=== PATIENT | female | born 1985 | race Caucasian/White ===

== ENCOUNTER 2017-09-17 01:27 | Emergency (ER) | payer MEDICAID, SELFPAY ==
[2017-09-17 01:32] VITALS: BP 138/82; PULSE 82; RESP 14; TEMP 36.6; O2SAT 97; BMI 23.6
[2017-09-17 01:58] LABS: Microscopic, Urine URINE MICROSCOPIC (MICROSCOPIC)
[2017-09-17 02:00] LABS: Appearance,Urine CLEAR (Clear); Bilirubin,Urine Negative (Negative); Blood, Urine 3+ (Negative); Color,Urine YELLOW (Yellow); Glucose,Urine (UA) Negative (Negative); Ketones,Urine Negative (Negative); Leukocyte Esterase,Urine Negative (Negative); Nitrate,Urine Negative (Negative); Protein,Urine Negative (Negative); Urobilinogen,Urine 0.2 EU/dl (0.2)
--- NOTE | 2017-09-17 02:01 | HMH.EDUROGF ---
ED Disposition Clinical Impression: Exposure to sexually transmitted disease (STD), Positive urine test Disposition: Home, Self-Care Condition on Discharge: Good Instructions: DI for Urethritis Additional Instructions: call your human factors advisor lead this am Referrals: Agustin Galaviz [Primary Care Provider] - - Critical Care Critical Care Time: No Attestation: On 09/17/17, the high probability of a clinically significant, sudden or life threatening deterioration of the following system(s) required my full and direct attention, intervention and personal management. The time I documented below is in addition to time spent performing reported procedures but includes the following listed in this critical care notation. Medical Decision Making - Medical Records Medical records reviewed: Yes: I reviewed the patient's medical records. Vital Signs: 09/17/17 01:32 Temperature 97.9 F Temperature Source Oral Pulse Rate [Right Radial] 82 Respiratory Rate 14 Blood Pressure [Right Arm] 138/82 Blood Pressure Mean [Right Arm] 100 Blood Pressure Source [Right Arm] Automatic Cuff Blood Pressure Position [Right Arm] Sitting 02 Sat by Pulse Oximetry 97 Oxygen Delivery Method Room Air - Lab Data Lab results reviewed: Yes: I reviewed the patient's lab results. Orders (Tests/Meds): ORDERS Category Date Time Status Urinalysis and Microscopic Stat Lab 09/17/17 01:50 Received Urine , HCG Qual Stat Lab 09/17/17 01:50 Received - Morris Inquiry Pt receiving controlled substance: No Female Urogenital HPI - General Chief complaint: Urogenital-Female Stated complaint: Difficulty urinating Time Seen by Provider: 09/17/17 02:01 Mode of Arrival: Ambulatory Source of Information: Patient, Medical Record Limitations: No Limitations Description of Symptoms (Recalled from ER Triage Doc. by RN): sexual partner reported chlamydia, has had some dysuria - History of Present Illness HPI Narrative: positive exposure to std - as noted above - MD Complaint: dysuria Onset (ago): day(s) Severity: moderate Urinary Symptoms: dysuria Sexual activity: new sexual partner(s) : no - Related Data Home Medications Medication Instructions Recorded Confirmed Pumpkin Seed Extract/Soy Germ [Azo 300 mg PO NEEDED PRN 09/17/17 09/17/17 Bladder Control Capsule] Allergies Allergy/AdvReac Type Severity Reaction Status Date / Time Penicillins Allergy Verified 09/17/17 01:43 [facility] History I have reviewed the patient's past medical history: Yes Medical History: Denies:: Cancer, Diabetes Mellitus Type 1, Diabetes Mellitus Type 2, MRSA Amputation: No Fractures: No - Social History Smoking Status: Current every day smoker Alcohol Intake: never - Psychiatric History Expresses thoughts of harming self/others: None Suicide Plan Description: No Plan ROS Obtained: Yes All systems reviewed & no additional complaints - Constitutional Constitutional: Denies fever(s) - Eyes Eyes: Denies change in vision - ENT Ears, Nose, Mouth, and Throat: Denies sore throat - Cardiovascular Cardiovascular: Denies chest pain - Respiratory Respiratory: No chest congestion - Gastrointestinal Gastrointestingal: Denies: abdominal pain - Genitourinary Female Genitourinary: Reports as per HPI, Reports other (recent d/c 09/11) - Musculoskeletal Musculoskeletal: Denies joint pain - Integumentary/Breasts Skin/Breast: Denies rash - Neurologic Neurologic: Denies seizure-like activity Physical Exam - General General appearance: in no apparent distress - Head Head exam: normocephalic - Eye Eye exam: Present: PERRL, EOMI - ENT ENT exam: Present: mucous membranes moist - Neck Neck exam: Present: trachea midline - Respiratory Respiratory exam: Absent: respiratory distress - Cardiovascular Cardiovascular exam: Present: regular rate - Neurological Exam Neurological exam: Present: emiliano
--- NOTE | 2017-09-17 02:04 | ED_ITS ---
ED Disposition Clinical Impression: Exposure to sexually transmitted disease (STD), Positive urine test Disposition: Home, Self-Care Condition on Discharge: Good Instructions: DI for Urethritis Additional Instructions: call your gynaecological oncologist this am Referrals: Agustin Galaviz [Primary Care Provider] - - Critical Care Critical Care Time: No Attestation: On 09/17/17, the high probability of a clinically significant, sudden or life threatening deterioration of the following system(s) required my full and direct attention, intervention and personal management. The time I documented below is in addition to time spent performing reported procedures but includes the following listed in this critical care notation. Medical Decision Making - Medical Records Medical records reviewed: Yes: I reviewed the patient's medical records. Vital Signs: 09/17/17 01:32 Temperature 97.9 F Temperature Source Oral Pulse Rate [Right Radial] 82 Respiratory Rate 14 Blood Pressure [Right Arm] 138/82 Blood Pressure Mean [Right Arm] 100 Blood Pressure Source [Right Arm] Automatic Cuff Blood Pressure Position [Right Arm] Sitting 02 Sat by Pulse Oximetry 97 Oxygen Delivery Method Room Air - Lab Data Lab results reviewed: Yes: I reviewed the patient's lab results. Orders (Tests/Meds): ORDERS Category Date Time Status Urinalysis and Microscopic Stat Lab 09/17/17 01:50 Received Urine , HCG Qual Stat Lab 09/17/17 01:50 Received - Morris Inquiry Pt receiving controlled substance: No Female Urogenital HPI - General Chief complaint: Urogenital-Female Stated complaint: Difficulty urinating Time Seen by Provider: 09/17/17 02:01 Mode of Arrival: Ambulatory Source of Information: Patient, Medical Record Limitations: No Limitations Description of Symptoms (Recalled from ER Triage Doc. by RN): sexual partner reported chlamydia, has had some dysuria - History of Present Illness HPI Narrative: positive exposure to std - as noted above - MD Complaint: dysuria Onset (ago): day(s) Severity: moderate Urinary Symptoms: dysuria Sexual activity: new sexual partner(s) : no - Related Data Home Medications Medication Instructions Recorded Confirmed Pumpkin Seed Extract/Soy Germ [Azo 300 mg PO NEEDED PRN 09/17/17 09/17/17 Bladder Control Capsule] Allergies Allergy/AdvReac Type Severity Reaction Status Date / Time Penicillins Allergy Verified 09/17/17 01:43 [facility] History I have reviewed the patient's past medical history: Yes Medical History: Denies:: Cancer, Diabetes Mellitus Type 1, Diabetes Mellitus Type 2, MRSA Amputation: No Fractures: No - Social History Smoking Status: Current every day smoker Alcohol Intake: never - Psychiatric History Expresses thoughts of harming self/others: None Suicide Plan Description: No Plan ROS Obtained: Yes All systems reviewed & no additional complaints - Constitutional Constitutional: Denies fever(s) - Eyes Eyes: Denies change in vision - ENT Ears, Nose, Mouth, and Throat: Denies sore throat - Cardiovascular Cardiovascular: Denies chest pain - Respiratory Respiratory: No chest congestion - Gastrointestinal Gastrointestingal: Denies:
[2017-09-17 02:05] LABS: Urine Pregnancy, HCG Qual. Positive (Negative)
[2017-09-17 02:07] LABS: Amorphous Sediment,Urine Trace /lpf; Bacteria,Urine 1+ /lpf; Mucus,Urine Trace /lpf
[2017-09-17 02:28] VITALS: BP 138/82; PULSE 80; RESP 14; TEMP 37; O2SAT 99
== END 2017-09-17 02:32 | disposition home or self-care (01) ==
PROVIDERS: Emergency Provider Emergency Medicine; Family Provider Family Medicine Addiction Medicine; PCP Family Medicine Addiction Medicine
DX: R30.0 Dysuria (principal); Z20.2 Contact with and (suspected) exposure to infections with a predominantly sexual mode of transmission; Z32.01 Encounter for pregnancy test, result positive
CPT/HCPCS: 81001; 81025; 99282

== ENCOUNTER 2020-07-29 08:20 | Emergency (ER) | payer MEDICAID, SELFPAY ==
[2020-07-29 08:21] VITALS: BP 135/83; PULSE 107; RESP 18; TEMP 36.8; O2SAT 97; BMI 26.2
--- NOTE | 2020-07-29 08:28 | PC.NURSE ---
ER at with ultrasound
[2020-07-29 08:45] LABS: Basophils % 0.4 % (0.1-2.0); Eosinophils # 0.2 K/mm3 (0.0-0.4); Eosinophils % 2.7 % (0.1-12.0); Hematocrit 35.9 % (37.0-47.0); Lymphocytes # 2.1 K/mm3 (0.7-4.5); Lymphocytes % 23.2 % (10-50); Mean Corpuscular HGB Conc 33.4 g/dL (31.8-35.4); Mean Corpuscular Hemoglobin 32.1 pg (27.0-31.2); Mean Platelet Volume 8.3 fl (7.4-10.4); Monocytes # 0.6 K/mm3 (0.1-1.0); Monocytes % 6.4 % (1.7-9.3); Neutrophils % 67.4 % (37.0-80.0); Platelet Count 221 K/mm3 (142-424); Red Blood Count 3.74 M/mm3 (4.20-5.40); Red Cell Distribution Width 13.3 % (11.5-17.5); White Blood Count 8.9 K/mm3 (4.8-10.8)
[2020-07-29 08:52] LABS: Chloride 108 mmol/L (98-107); Sodium 136 mmol/L (136-145)
[2020-07-29 08:53] LABS: Potassium 3.7 mmoL/L (3.5-5.1)
--- NOTE | 2020-07-29 08:53 | HMH.EDGENADL ---
ED Disposition Clinical Impression: Pain, Abdominal cramps, Third trimester Disposition: Still a Patient Condition on Discharge: Fair Referrals: PCP,No [Primary Care Provider] - Time of Disposition: 09:42 - Critical Care Critical Care Time: No Attestation: On , the high probability of a clinically significant, sudden or life threatening deterioration of the following system(s) required my full and direct attention, intervention and personal management. The time I documented below is in addition to time spent performing reported procedures but includes the following listed in this critical care notation. Medical Decision Making - Medical Records Medical records reviewed: Yes: I reviewed the patient's medical records. - Morris Inquiry Pt receiving controlled substance: No Vital Signs: 07/29/20 08:21 07/29/20 09:39 Temperature 98.2 F 98.2 F Temperature Source Oral Oral Pulse Rate 82 Pulse Rate [Left Radial] 107 H Respiratory Rate 18 20 Blood Pressure 166/89 H Blood Pressure [Right Arm] 135/83 Blood Pressure Mean [Right Arm] 100 Blood Pressure Source Automatic Cuff Blood Pressure Source [Right Arm] Automatic Cuff Blood Pressure Position Sitting Blood Pressure Position [Right Arm] Sitting 02 Sat by Pulse Oximetry 97 Oxygen Delivery Method Room Air Room Air - Lab Data Lab Results 07/29/20 08:39: WBC 8.9, RBC 3.74 L, Hgb 12.0 L, Hct 35.9 L, MCV 96.0, MCH 32.1 H, MCHC 33.4, RDW 13.3, Plt Count 221, MPV 8.3, Neut % (Auto) 67.4, Lymph % (Auto) 23.2, [place] % (Auto) 6.4, Eos % (Auto) 2.7, Baso % (Auto) 0.4, Neut # (Auto) 6.0, Lymph # (Auto) 2.1, [place] # (Auto) 0.6, Eos # (Auto) 0.2, Baso # (Auto) 0.0 07/29/20 08:39: Sodium 136, Potassium 3.7, Chloride 108 H, Carbon Dioxide 22, Anion Gap 9.7, BUN 11, Creatinine 0.60, Estimated Creat Clear 168, Estimated GFR 114, Est GFR ( Amer) 138, Glucose 118 H, Calcium 9.2, Total Bilirubin 0.5, AST 24, ALT 21, Alkaline Phosphatase 72, Total Protein 6.8, Albumin 3.5, Globulin 3.3 H, Albumin/Globulin Ratio 1.1 07/29/20 08:57: Urine Color Yellow, Urine Appearance Clear, Urine pH 6.0, Ur Specific [place] 1.025, Urine Protein Trace, Urine Glucose (UA) Trace, Urine Ketones Trace, Urine Blood 3+, Urine Nitrate Negative, Urine Bilirubin Negative, Urine Urobilinogen 0.2, Ur Leukocyte Esterase Negative, Urine RBC 20-50, Urine WBC 3-5, Ur Squamous Epith Cells Occasional Result diagrams: 07/29/20 08:39 07/29/20 08:39 Medical Decision Narrative: In summary this is a 35-year-old female presenting to the emergency department with difficulty urinating. She is clinically stable on arrival. Vital signs are within normal limits. She does appear somewhat uncomfortable. Bedside ultrasound shows no hydronephrosis. No clearly distended bladder, below the gravid uterus. Will obtain CBC, CMP, urinalysis. Concern for renal injury, tract infection. Initial laboratory results are reassuring. No renal insufficiency. Urinalysis shows RBCs, but no evidence of infection. Shortly after my initial evaluation, when nursing staff went to [facility], patient said she was having intense lower abdominal pain. [place] like she was having contractions. [place] the urge to push. She is 27 weeks gestation. Is viable. No palpable uterine tension. She only had a few cc of urine in her bladder. Do not believe that urinary obstruction is her primary problem. She will be taken up to OB triage for further management. Patient agreeable with plan. General Adult HPI - General Stated complaint: Cramping, can't urinate Time Seen by Provider: 07/29/20 08:34 Mode of Arrival: Ambulatory Limitations: No Limitations Description of Symptoms (Recalled from ER Triage Doc. by RN): Pt states that she is unable to urinate since the night before. She is 27 weeks and thinks he might be laying on her bladder. Has trouble with urination if she drinks caffeine but has not drank any. Had some cramps last
[2020-07-29 08:55] LABS: Alanine Aminotransferase 21 U/L (12-78); Alkaline Phosphatase 72 U/L (38-126); Anion Gap 9.7 mEq/L (5-15); Aspartate Amino Transferase 24 U/L (14-36); Bilirubin,Total 0.5 mg/dl (0.2-1.3); Blood Urea Nitrogen 11 mg/dl (7-17); Calcium 9.2 mg/dl (8.4-10.2); Carbon Dioxide 22 mmol/L (22.0-30.0); Creatinine Clearance Estimated 168 mL/min (50-200); Estimated Glomerular Filt Rate 114 ml/min (>60); GFR (African American) 138 ML/MIN (>60); Glucose 118 mg/dl (74-100)
[2020-07-29 08:56] LABS: Albumin Level 3.5 g/dl (3.5-5.0); Albumin/Globulin Ratio 1.1 (1.1-1.8); Globulin 3.3 g/dL (1.3-3.2); Total Protein,Serum 6.8 g/dl (6.3-8.2)
[2020-07-29 09:01] LABS: Microscopic, Urine URINE MICROSCOPIC (MICROSCOPIC)
[2020-07-29 09:02] LABS: Appearance,Urine CLEAR (Clear); Bilirubin,Urine Negative (Negative); Blood, Urine 3+ (Negative); Color,Urine YELLOW (Yellow); Glucose,Urine (UA) TRACE (Negative); Ketones,Urine TRACE (Negative); Leukocyte Esterase,Urine Negative (Negative); Nitrate,Urine Negative (Negative); Protein,Urine TRACE (Negative); Specific Gravity, Urine 1.025 (1.005-1.030); Urobilinogen,Urine 0.2 EU/dl (0.2)
--- NOTE | 2020-07-29 09:18 | PC.NURSE ---
Smith placed, pt states that she had not urinated for over 24 hours and she was having bladder pain. Once smith placed approx 50 cc obtained. Urine sent to lab. Blood tinge maranda color urine. PT states no relief after placement of cath. Stating that she needs to push. Encouraged pt not to push and to take deep breaths. MD bermeo and OB contacted. PEr pt is to go to OB floor on stretcher for further evaluation. Demetrius CLAY, [place] CLAY and MD Gordon transferred pt to OB floor. Assisted in transferring pt to OB bed. Per Judy OB RN pt cervix were closed and uterus was soft. Pt informed of this assessment and stating she is having pain in her pelvic area and she feels the need to push. Reinforced pt to take deep breaths and not to push. Pt placed on OB monitor and OB rn continued with monitoring of pt and baby.
[2020-07-29 09:19] LABS: RBC,Urine 20-50 #/hpf (0-3); Squamous Epithelial Cell,Urine Occasional #/hpf (0-5)
--- NOTE | 2020-07-29 09:20 | PC.NURSE ---
Urinary Cath was placed in patient by OBED Grant, very little urine output. What output was available was sent to lab. Patient advised she felt like she needed to push. Patient taken upstairs to OB triage for further workup. Patient advised last night she felt like she was having contractions.
--- NOTE | 2020-07-29 09:22 | PC.NURSE ---
Called and spoke with patients significant other (per patient request), he advised records from [facility] should be obtained if at all possible as she has been having this pressure since 14-16 weeks gestation. Advised him she was going up to OB triage. Called OB and let them know of her records and his request for an update once they know more.
[2020-07-29 09:39] VITALS: BP 166/89; PULSE 82; RESP 20; TEMP 36.8; O2SAT 96
== END 2020-07-29 09:45 | disposition still patient (30) ==
PROVIDERS: Emergency Provider Emergency Medicine
DX: O26.893 Other specified pregnancy related conditions, third trimester (principal); Z3A.27 27 weeks gestation of pregnancy; Z88.0 Allergy status to penicillin; F17.210 Nicotine dependence, cigarettes, uncomplicated
CPT/HCPCS: 80053; 81001; 85025; 99282

== ENCOUNTER 2020-07-29 09:20 | Outpatient (CLI) | payer MEDICAID, SELFPAY ==
[2020-07-29 09:35] VITALS: BP 137/85; PULSE 87; RESP 22; TEMP 36.8; O2SAT 98; BMI 26.2; BMI 27.8
--- NOTE | 2020-07-29 10:13 | HMH.ACPN2 ---
Internal Medicine - PN: Subj *Date: 07/29/20 *Time: 10:13 Interval history: She is a 35-year-old 4 para 3 who is 27 weeks gestational age. She was seen in the ER and was not able to void. They had her void and did a residual which was minimal. She just feels pressure and feels like he has to push. Nonstress test is reactive she is not having any contractions. Her cervix is long and closed. Her urinalysis showed 3+ blood. I suspect she has a urinary tract infection. We have given her a couple of liters of fluid as well as Macrobid and Pyridium. She seems to be doing a little better. We will plan to send her home with Macrobid and Pyridium. Exam Vital signs and Labs for Last 24 Hours: Temp Pulse Resp BP Pulse Ox 98.2 F 87 22 137/85 98 07/29/20 09:35 07/29/20 09:35 07/29/20 09:35 07/29/20 09:35 07/29/20 09:35 I & O for Last 24 hours: Intake & Output 07/26/20 07/27/20 07/28/20 07/29/20 11:59 11:59 11:59 11:59 Weight 178 lb - Constitutional no acute distress - *Routine HEENT Exam Head: Present: normocephalic Eye: Present: EOMI, PERRL ENT: Present: mucous membranes moist Assessment and Plan (1) Urinary tract infection affecting care of mother in third trimester, antepartum Status: Acute Category: Medical Code(s): O23.43 - Unspecified infection of urinary tract in , third trimester (2) Dysuria during in third trimester Status: Acute Category: Medical Code(s): O26.893 - Other specified related conditions, third trimester; R30.0 - Dysuria - Assessment and plan all Dx Assessment and Plan for all problems:: She is doing better after having fluids as well as Pyridium and Macrobid. We will plan to send her home. She will follow up with her physicians in [facility]. Her cervix is unchanged and the nonstress test is reactive.
[2020-07-29 11:00] LABS: Barbiturates Screen,Urine Negative ng/ml (<200)
[2020-07-29 11:01] LABS: Benzodiazepines Screen,Urine Negative ng/ml (<200)
[2020-07-29 11:02] LABS: Amphetamine/Metha Screen,Urine Negative ng/ml (<1000); Cannabinoid Screen,Urine Positive ng/ml (<50)
[2020-07-29 11:03] LABS: Cocaine Screen,Urine Negative ng/ml (<300)
[2020-07-29 11:04] LABS: Methadone Screen,Urine Negative ng/ml (<300); Opiate Screen,Urine Negative ng/ml (<300)
[2020-07-29 11:05] LABS: Phencyclidine Screen,Urine Negative ng/ml (<25)
== END 2020-07-29 11:05 | disposition home or self-care (01) ==
LOC: OBOUT 09:21 → OB 09:22
PROVIDERS: Visit Provider Nurse Practitioner Obstetrics & Gynecology
DX: O26.892 Other specified pregnancy related conditions, second trimester (principal); Z3A.27 27 weeks gestation of pregnancy; R10.2 Pelvic and perineal pain
CPT/HCPCS: 59025; 80305; 96360; 96361